=== PATIENT | male | born 1940 | race Caucasian/White ===

== ENCOUNTER 2023-11-28 13:45 | Emergency (ER) | payer OTHER ==
[2023-11-28 14:02] VITALS: BMI 16.7
[2023-11-28 15:52] LABS: BASO % 0.7 % (0-2.0); EOS % 2.8 % (0-4.5); HEMATOCRIT 35.5 % (35.4-49); HEMOGLOBIN 12.1 GM/dL (11.7-16.9); LYMPH % 19.3 % (8-40); MCHC 34.1 g/dl (32.0-35.9); MEAN CELL VOLUME 88.1 fl (80-96); MEAN PLT VOLUME 8.4 fl (7.5-11.1); MONO % 8.1 % (3.8-10.2); NEUT % 69.1 % (42.8-82.8); PLATELET COUNT 219 10^3/uL (134-434); RBC 4.02 M/mm3 (4.00-5.60); RDW 15.4 % (11.9-15.9); WHITE BLOOD COUNT 10.5 K/mm3 (4.0-10.0)
[2023-11-28 16:14] LABS: POTASSIUM 3.6 mmol/L (3.5-5.1)
[2023-11-28 16:17] LABS: ALBUMIN 3.1 g/dl (3.4-5.0); CALCIUM 8.9 mg/dL (8.5-10.1)
[2023-11-28 16:20] LABS: CREATININE 1.4 mg/dL (0.55-1.3)
[2023-11-28 16:22] LABS: BILIRUBIN,TOTAL 0.9 mg/dL (0.2-1); TOT PROT 6.6 g/dl (6.4-8.2)
[2023-11-28] MEDS: ACETAMINOPHEN 1000 MG/100 ML BAG IVPB ONE (16:30)
[2023-11-28] MEDS ORDERED: ACETAMINOPHEN INJECTION 100 ML IVPB ONE (16:35)
[2023-11-28] MEDS: SODIUM CHLORIDE 0.9% 500 ML INFUS.BAG IV ONE (18:43)
[2023-11-28 19:59] LABS: EPI CELLS 1 /uL (0-25.1); HYALINE CASTS 0 /uL (0-3.1); URINE APPEARANCE CLEAR; URINE BACTERIA 654 /uL (0-1359); URINE BILIRUBIN NEGATIVE (NEGATIVE); URINE COLOR YELLOW; URINE GLUCOSE (UA) NEGATIVE (NEGATIVE); URINE KETONE NEGATIVE (NEGATIVE); URINE LEUK ESTERASE 3+ (NEGATIVE); URINE NITRITE NEGATIVE (NEGATIVE); URINE PROTEIN NEGATIVE (NEGATIVE); URINE WBC 621 /uL (0-25.8)
[2023-11-28 20:29] LABS: URINE RBC 35.8 /uL (0-23.9)
[2023-11-28] MEDS ORDERED: SULFAMETHOXAZOLE/TRIMETHOPRIM 800MG/160MG D.S. TABLET ONE (21:39)
[2023-11-28] MEDS: SULFAMETHOXAZOLE/TRIMETHOPRIM 800MG/160MG D.S. TABLET PO ONE (21:50)
[2023-11-29 07:48] VITALS: BP 150/73; PULSE 71; RESP 18; TEMP 97.7
== END 2023-11-29 08:35 | disposition home or self-care (01) ==
LOC: JER 13:45
PROC: 3E033NZ Introduction of Analgesics, Hypnotics, Sedatives into Peripheral Vein, Percutaneous Approach (ICD-10-PCS; principal; 2023-11-28)
DX: R42 Dizziness and giddiness (principal); N39.0 Urinary tract infection, site not specified; W19.XXXA Unspecified fall, initial encounter; Z20.822 Contact with and (suspected) exposure to COVID-19
CPT/HCPCS: 0241U-QW; 36415; 70450-TC; 71045-TC-FY; 72125-TC; 72170-TC-FY; 80053; 81003; 83735; 85025; 87086; 87186; 93005; 93010; 99285-25; J0131

== ENCOUNTER 2024-02-27 14:56 | Inpatient (IN) | payer OTHER ==
[2024-02-27 16:24] LABS: HEMATOCRIT 21.7 % (35.4-49); HEMOGLOBIN 7.3 GM/dL (11.7-16.9); MCH 29.5 pg (25.7-33.7); MCHC 33.7 g/dl (32.0-35.9); MEAN CELL VOLUME 87.5 fl (80-96); MEAN PLT VOLUME 8.2 fl (7.5-11.1); PLATELET COUNT 477 10^3/uL (134-434); RBC 2.48 M/mm3 (4.00-5.60); RDW 13.8 % (11.9-15.9); WHITE BLOOD COUNT 20.2 K/mm3 (4.0-10.0)
[2024-02-27] MEDS ORDERED: MAG HYDROX/AL HYDROX/SIMETH 30 ML UNIT-DOSE CUP ONE (16:28)
[2024-02-27] MEDS ORDERED: ONDANSETRON 4 MG/2 ML VIAL ONE (16:28)
[2024-02-27] MEDS: SODIUM CHLORIDE 1,000 ML IV STA (16:34)
[2024-02-27] MEDS: ONDANSETRON 4 MG/2 ML VIAL IVPUSH ONE (16:34)
[2024-02-27] MEDS: MAG HYDROX/AL HYDROX/SIMETH 30 ML UNIT-DOSE CUP PO ONE (16:34)
[2024-02-27 16:55] LABS: ANISOCYTOSIS 0; HELMET CELLS 0; HOWELL-JOLLY BODIES 0; MACROCYTOSIS 0; OVALOCYTE 0; ROULEAU 0; SICKELED CELLS 0; TARGET CELLS 0; TEAR DROP CELLS 0; TOXIC GRANULATION 0
[2024-02-27] MEDS ORDERED: FAMOTIDINE 20 MG/50 ML IVPB 20 MG/50 ML MG IVPB ONE (16:56)
[2024-02-27] MEDS ORDERED: ACETAMINOPHEN INJECTION 100 ML IVPB ONE (16:56)
[2024-02-27] MEDS: FAMOTIDINE 20 MG/50 ML IVPB 20 MG/50 ML MG IVPB ONE (17:01)
[2024-02-27] MEDS: ACETAMINOPHEN 1000 MG/100 ML BAG IVPB ONE (17:01)
[2024-02-27 17:53] LABS: POTASSIUM 4.4 mmol/L (3.5-5.1)
[2024-02-27 17:55] LABS: CALCIUM 8.7 mg/dL (8.5-10.1)
[2024-02-27 17:56] LABS: ALBUMIN 2.6 g/dl (3.4-5.0); BLOOD UREA NITROGEN 50.4 mg/dL (7-18)
[2024-02-27 17:59] LABS: CREATININE 1.7 mg/dL (0.55-1.3)
[2024-02-27 18:00] LABS: BILIRUBIN,TOTAL 0.5 mg/dL (0.2-1); TOT PROT 5.8 g/dl (6.4-8.2)
[2024-02-27] MEDS ORDERED: PIPERACILLIN/TAZOB 3.375 GM 3.375 GM/50 ML BAG IVPB ONE (19:44)
[2024-02-27] MEDS: PIPERACILLIN/TAZOB 3.375 GM 3.375 GM in DEXTROSE 5%-WATER - 50 ML IVPB ONE (19:49)
[2024-02-27] MEDS ORDERED: VANCOMYCIN 1 GRAM (PRE-DOCKED) 1,000 MG/250 ML BAG IVPB ONE (20:03)
[2024-02-27 20:04] LABS: VENOUS BASE EXCESS -1.1 mmol/L (-2-2); VENOUS O2 SATURATION 34.3 % (70-80); VENOUS PCO2 43.4 mmHg (38-52); VENOUS PH 7.365 (7.310-7.410)
[2024-02-27] MEDS: VANCOMYCIN 1,000 MG in DEXTROSE 5%-WATER - 250 ML IVPB ONE (20:16)
[2024-02-27] MEDS: SODIUM CHLORIDE 0.9% 1000 ML INFUS.BAG IV STA (20:53)
[2024-02-27] MEDS ORDERED: PANTOPRAZOLE SODIUM 40 MG VIAL ONE (21:49)
[2024-02-27] MEDS: PANTOPRAZOLE SODIUM 40 MG VIAL IVPUSH ONE (21:51)
[2024-02-28 04:41] LABS: BASO % 0.1 % (0-2.0); HEMATOCRIT 14.4 % (35.4-49); LYMPH % 1.5 % (8-40); MCH 28.7 pg (25.7-33.7); MEAN CELL VOLUME 89.6 fl (80-96); MEAN PLT VOLUME 7.5 fl (7.5-11.1); MONO % 3.2 % (3.8-10.2); NEUT % 95.2 % (42.8-82.8); PLATELET COUNT 375 10^3/uL (134-434); RBC 1.61 M/mm3 (4.00-5.60); RDW 13.7 % (11.9-15.9)
[2024-02-28 04:48] LABS: INR 1.71 (0.83-1.09)
[2024-02-28 04:51] LABS: ACTIVATED PTT 29.4 SECONDS (25.2-36.5)
[2024-02-28 05:39] LABS: WHITE BLOOD COUNT 41.8 K/mm3 (4.0-10.0)
[2024-02-28 05:40] LABS: HEMOGLOBIN 4.6 GM/dL (11.7-16.9)
[2024-02-28 07:26] LABS: CHLORIDE 93 mmol/L (98-107); POTASSIUM 5.6 mmol/L (3.5-5.1); SODIUM 128 mmol/L (136-145)
[2024-02-28 07:28] LABS: CALCIUM 7.8 mg/dL (8.5-10.1)
[2024-02-28 07:29] LABS: ALBUMIN 2.2 g/dl (3.4-5.0); ANION GAP 24 mmol/L (4-13); BLOOD UREA NITROGEN 49.2 mg/dL (7-18); CO2 11 mmol/L (21-32); MAGNESIUM 1.8 mg/dL (1.8-2.4)
[2024-02-28 07:32] LABS: CREATININE 2.2 mg/dL (0.55-1.3); PHOSPHOROUS 5.1 mg/dL (2.5-4.9); SGOT/AST 21 U/L (15-37); SGPT/ALT 27 U/L (13-61)
[2024-02-28 07:34] LABS: TOT PROT 4.9 g/dl (6.4-8.2)
[2024-02-28 07:35] LABS: ALK PHOS 59 U/L (45-117)
[2024-02-28 07:37] LABS: GLUCOSE,RANDOM 435 mg/dL (74-106)
[2024-02-28] MEDS ORDERED: PIPERACILLIN/TAZOB 2.25 GM 2.25 GM in DEXTROSE 5%-WATER - 50 ML IVPB SCH (09:00)
[2024-02-28 09:24] LABS: ARTERIAL BLD GAS O2 SATURATION 98.9 % (95-98); ARTERIAL BLOOD GAS BASE EXCESS -16.9 mmol/L (-2-2); ARTERIAL BLOOD GAS PO2 159.1 mmHg (80-100); ARTERIAL BLOOD GAS pH 7.285 (7.350-7.450)
[2024-02-28 09:50] LABS: ANISOCYTOSIS 0; HELMET CELLS 0; HOWELL-JOLLY BODIES 0; MACROCYTOSIS 0; OVALOCYTE 0; ROULEAU 0; SICKELED CELLS 0; TARGET CELLS 0; TEAR DROP CELLS 0; TOXIC GRANULATION 0
[2024-02-28] MEDS ORDERED: CALCIUM CHLORIDE 10% 1 GM/10 ML *VIAL IVPUSH ONE (09:55)
[2024-02-28] MEDS: VANCOMYCIN/WATER FOR INJ (PEG) 750 MG/150 ML BAG IVPB SCH (09:58)
[2024-02-28] MEDS: HUM PROTHROMBIN CPLX(PCC)4FACT 1,000 UNIT/40 ML VIAL IVPB ONE (10:04)
[2024-02-28] MEDS ORDERED: DEXTROSE 50%-WATER 25 GM/50 ML DISP.SYRIN ONE (10:27)
[2024-02-28] MEDS: DEXTROSE 50%-WATER - 25 GM/50 ML VIAL IVPUSH ONE (10:35)
[2024-02-28] MEDS: INSULIN REGULAR HUMAN 100 UNITS/ML *VIAL IVPUSH ONE (10:36)
[2024-02-28] MEDS: CALCIUM CHLORIDE 1 GM/10 ML *DISP.SYRIN IVPUSH ONE (10:36)
[2024-02-28] MEDS: PIPERACILLIN/TAZOB 2.25 GM 2.25 GM in DEXTROSE 5%-WATER - 50 ML IVPB SCH (10:56)
[2024-02-28] MEDS: PHYTONADIONE 10 MG/1 ML AMP IVPB ONE (10:56)
[2024-02-28] MEDS: MUPIROCIN 2% TOPICAL OINTMENT FOR DECOLONIZATION NS SCH (11:28)
[2024-02-28 11:30] LABS: PH,URINE 5.5 (5.0-8.0); URINE APPEARANCE CLEAR; URINE BILIRUBIN NEGATIVE (NEGATIVE); URINE COLOR YELLOW; URINE GLUCOSE (UA) 3+ (NEGATIVE); URINE KETONE 1+ (NEGATIVE); URINE LEUK ESTERASE NEGATIVE (NEGATIVE); URINE NITRITE NEGATIVE (NEGATIVE); URINE PROTEIN NEGATIVE (NEGATIVE); URINE UROBILINOGEN 0.2 mg/dL (0.2-1.0)
[2024-02-28] MEDS: INSULIN REGULAR HUMAN 100 UNITS/ML *VIAL* (FOR IVP) IVPUSH ONE (12:55)
[2024-02-28 13:49] LABS: HEMOGLOBIN 9.8 GM/dL (11.7-16.9); MCH 31.1 pg (25.7-33.7); MCHC 33.6 g/dl (32.0-35.9); MEAN CELL VOLUME 92.4 fl (80-96); MEAN PLT VOLUME 8.5 fl (7.5-11.1); PLATELET COUNT 231 10^3/uL (134-434); RBC 3.14 M/mm3 (4.00-5.60); RDW 13.5 % (11.9-15.9)
[2024-02-28 13:57] LABS: INR 1.43 (0.83-1.09); PROTHROMBIN TIME (PATIENT) 16.3 SEC (9.7-13.0)
[2024-02-28] MEDS: INSULIN REGULAR 100 UNITS in SODIUM CHLORIDE 99 ML IVPB SCH (13:57)
[2024-02-28 14:04] LABS: CHLORIDE 96 mmol/L (98-107); SODIUM 127 mmol/L (136-145); WHITE BLOOD COUNT 32.5 K/mm3 (4.0-10.0)
[2024-02-28 14:06] LABS: ANION GAP 14 mmol/L (4-13); CALCIUM 8.5 mg/dL (8.5-10.1); CO2 17 mmol/L (21-32)
[2024-02-28 14:07] LABS: ALBUMIN 1.9 g/dl (3.4-5.0); MAGNESIUM 1.9 mg/dL (1.8-2.4)
[2024-02-28 14:09] LABS: PHOSPHOROUS 4.8 mg/dL (2.5-4.9)
[2024-02-28 14:10] LABS: CREATININE 2.1 mg/dL (0.55-1.3); SGOT/AST 52 U/L (15-37); SGPT/ALT 43 U/L (13-61)
[2024-02-28 14:11] LABS: BILIRUBIN,TOTAL 1.3 mg/dL (0.2-1); TOT PROT 4.1 g/dl (6.4-8.2)
[2024-02-28 14:12] LABS: ALK PHOS 52 U/L (45-117); LACTIC ACID 10.2 mmol/L (0.4-2.0)
[2024-02-28 14:13] LABS: LDH 220 U/L (87-246)
[2024-02-28 14:15] LABS: GLUCOSE,RANDOM 534 mg/dL (74-106)
[2024-02-28 14:44] LABS: ANISOCYTOSIS 0; HELMET CELLS 0; HOWELL-JOLLY BODIES 0; MACROCYTOSIS 0; OVALOCYTE 0; ROULEAU 0; SICKELED CELLS 0; TARGET CELLS 0; TEAR DROP CELLS 0; TOXIC GRANULATION 0
[2024-02-28] MEDS: SODIUM ZIRCONIUM CYCLOSILICATE (LOKELMA) 5 GM PACKET PO ONE (15:19)
[2024-02-28] MEDS: DEXTROSE 5%-0.45% SALINE 1,000 ML IV SCH (15:19)
[2024-02-28] MEDS ORDERED: SODIUM CHLORIDE 0.45% 1,000 ML with SODIUM BICARBONATE 8.4% - 100 MEQ IV SCH ×2 (16:15→17:03)
[2024-02-28 16:42] LABS: BASO % 0.1 % (0-2.0); HEMATOCRIT 34.8 % (35.4-49); HEMOGLOBIN 11.9 GM/dL (11.7-16.9); LYMPH % 2.8 % (8-40); MCH 31.1 pg (25.7-33.7); MCHC 34.1 g/dl (32.0-35.9); MEAN CELL VOLUME 91.3 fl (80-96); MEAN PLT VOLUME 8.3 fl (7.5-11.1); MONO % 1.4 % (3.8-10.2); NEUT % 95.7 % (42.8-82.8); PLATELET COUNT 211 10^3/uL (134-434); RBC 3.81 M/mm3 (4.00-5.60); RDW 13.8 % (11.9-15.9); WHITE BLOOD COUNT 29.9 K/mm3 (4.0-10.0)
[2024-02-28 16:47] LABS: INR 1.44 (0.83-1.09); PROTHROMBIN TIME (PATIENT) 16.4 SEC (9.7-13.0)
[2024-02-28] MEDS: LACTATED RINGERS SOLUTION 1000 ML INFUS.BAG IV ONE (16:47)
[2024-02-28 17:08] LABS: CHLORIDE 97 mmol/L (98-107); POTASSIUM 4.9 mmol/L (3.5-5.1); SODIUM 129 mmol/L (136-145)
[2024-02-28 17:10] LABS: CALCIUM 8.4 mg/dL (8.5-10.1)
[2024-02-28 17:11] LABS: ALBUMIN 1.9 g/dl (3.4-5.0); ANION GAP 16 mmol/L (4-13); BLOOD UREA NITROGEN 52.8 mg/dL (7-18); CO2 16 mmol/L (21-32); MAGNESIUM 1.8 mg/dL (1.8-2.4)
[2024-02-28 17:13] LABS: PHOSPHOROUS 2.5 mg/dL (2.5-4.9); SGOT/AST 63 U/L (15-37); SGPT/ALT 52 U/L (13-61)
[2024-02-28 17:14] LABS: CREATININE 2.5 mg/dL (0.55-1.3)
[2024-02-28 17:15] LABS: TOT PROT 4.2 g/dl (6.4-8.2)
[2024-02-28 17:16] LABS: ALK PHOS 52 U/L (45-117)
[2024-02-28 17:17] LABS: GLUCOSE,RANDOM 473 mg/dL (74-106); LACTIC ACID 9.8 mmol/L (0.4-2.0)
[2024-02-28 17:38] LABS: ANISOCYTOSIS 1+; MACROCYTOSIS 0; OVALOCYTE 1+
[2024-02-28] MEDS ORDERED: INSULIN REGULAR HUMAN 100 UNITS/ML *VIAL ONE (18:09)
[2024-02-28] MEDS ORDERED: SODIUM CHLORIDE 0.45% 1,000 ML with SODIUM BICARBONATE 8.4% - 75 MEQ IV SCH (18:15)
[2024-02-28] MEDS: SODIUM CHLORIDE 0.45% 1,000 ML with SODIUM BICARBONATE 8.4% - 75 MEQ IV SCH (18:28)
[2024-02-28] MEDS ORDERED: VANCOMYCIN 750 MG in DEXTROSE 5%-WATER - 150 ML IVPB SCH (20:00)
[2024-02-28 21:20] LABS: HEMATOCRIT 30.4 % (35.4-49); HEMOGLOBIN 10.7 GM/dL (11.7-16.9); MCH 31.2 pg (25.7-33.7); MCHC 35.3 g/dl (32.0-35.9); MEAN CELL VOLUME 88.5 fl (80-96); MEAN PLT VOLUME 8.1 fl (7.5-11.1); PLATELET COUNT 206 10^3/uL (134-434); RBC 3.43 M/mm3 (4.00-5.60); RDW 13.9 % (11.9-15.9)
[2024-02-28 21:27] LABS: INR 1.48 (0.83-1.09); PROTHROMBIN TIME (PATIENT) 16.8 SEC (9.7-13.0)
[2024-02-28] MEDS: CHLORHEXIDINE GLUCONATE 4% CLEANSER FOR DECOLONIZATION TP SCH (21:36)
[2024-02-28 21:39] LABS: POTASSIUM 4.6 mmol/L (3.5-5.1)
[2024-02-28 21:41] LABS: BLOOD UREA NITROGEN 56.5 mg/dL (7-18); CALCIUM 8.4 mg/dL (8.5-10.1)
[2024-02-28 21:42] LABS: ALBUMIN 1.9 g/dl (3.4-5.0)
[2024-02-28 21:45] LABS: CREATININE 2.4 mg/dL (0.55-1.3)
[2024-02-28 21:46] LABS: BILIRUBIN,TOTAL 1.1 mg/dL (0.2-1)
[2024-02-28 21:52] LABS: LACTIC ACID 5.9 mmol/L (0.4-2.0)
[2024-02-28] MEDS ORDERED: SODIUM ZIRCONIUM CYCLOSILICATE (LOKELMA) 5 GM PACKET PO SCH (22:00)
[2024-02-28 22:22] LABS: WHITE BLOOD COUNT 36.8 K/mm3 (4.0-10.0)
[2024-02-29] MEDS: ONDANSETRON 4 MG/2 ML VIAL IVPUSH ONE ×2 (05:45→06:33)
[2024-02-29] MEDS: DEXTROSE 5%-0.45% SALINE 1,000 ML IV SCH (06:00)
[2024-02-29] MEDS: INSULIN REGULAR 100 UNITS in SODIUM CHLORIDE 99 ML IVPB SCH (06:25)
[2024-02-29 06:33] LABS: HEMATOCRIT 28.2 % (35.4-49); HEMOGLOBIN 9.8 GM/dL (11.7-16.9); MCH 30.8 pg (25.7-33.7); MCHC 34.8 g/dl (32.0-35.9); MEAN CELL VOLUME 88.6 fl (80-96); MEAN PLT VOLUME 9.1 fl (7.5-11.1); PLATELET COUNT 214 10^3/uL (134-434); RBC 3.18 M/mm3 (4.00-5.60); RDW 14.2 % (11.9-15.9)
[2024-02-29 06:37] LABS: POTASSIUM 5.1 mmol/L (3.5-5.1)
[2024-02-29 06:40] LABS: BLOOD UREA NITROGEN 61.8 mg/dL (7-18); MAGNESIUM 1.7 mg/dL (1.8-2.4)
[2024-02-29 06:43] LABS: CREATININE 2.6 mg/dL (0.55-1.3); PHOSPHOROUS 4.1 mg/dL (2.5-4.9)
[2024-02-29 06:44] LABS: BILIRUBIN,TOTAL 0.8 mg/dL (0.2-1); TOT PROT 4.4 g/dl (6.4-8.2)
[2024-02-29 07:17] LABS: BASO % 0.2 % (0-2.0); HEMATOCRIT 27.3 % (35.4-49); HEMOGLOBIN 9.6 GM/dL (11.7-16.9); LYMPH % 2.3 % (8-40); MCHC 35.3 g/dl (32.0-35.9); MEAN CELL VOLUME 87.8 fl (80-96); MEAN PLT VOLUME 9.2 fl (7.5-11.1); MONO % 4.6 % (3.8-10.2); NEUT % 92.9 % (42.8-82.8); PLATELET COUNT 208 10^3/uL (134-434); RBC 3.11 M/mm3 (4.00-5.60); RDW 14.4 % (11.9-15.9); WHITE BLOOD COUNT 46.7 K/mm3 (4.0-10.0)
[2024-02-29 08:08] LABS: WHITE BLOOD COUNT 47.1 K/mm3 (4.0-10.0)
[2024-02-29] MEDS ORDERED: CALCIUM CHLORIDE 10% 1 GM/10 ML *VIAL IVPUSH ONE ×2 (08:56→10:15)
[2024-02-29] MEDS ORDERED: CALCIUM GLUCONATE IN NACL 1 GM/50 ML BAG IVPB ONE (09:00)
[2024-02-29] MEDS: PIPERACILLIN/TAZOB 2.25 GM 2.25 GM in DEXTROSE 5%-WATER - 50 ML IVPB SCH (09:45)
[2024-02-29] MEDS: MAGNESIUM 2GM/50ML STERILE WATER IVPB IVPB ONE (09:46)
[2024-02-29] MEDS: VANCOMYCIN/WATER FOR INJ (PEG) 1,000 MG/200 ML BAG IVPB ONE (09:46)
[2024-02-29 09:47] LABS: ANISOCYTOSIS 0; MACROCYTOSIS 0
[2024-02-29] MEDS: INSULIN ASPART SLIDING SCALE (NOVOLOG) 1 VIAL SQ SCH (10:04)
[2024-02-29] MEDS: PANTOPRAZOLE SODIUM 40 MG VIAL IVPUSH SCH ×2 (10:05→21:12)
[2024-02-29] MEDS: CALCIUM CHLORIDE 1 GM/10 ML *DISP.SYRIN IVPUSH ONE (10:19)
[2024-02-29] MEDS ORDERED: INSULIN (NOVOLOG) ASPART 100 UNITS/ML 10ML VIAL ONE (11:26)
[2024-02-29] MEDS: FUROSEMIDE 40 MG/4 ML INJECTABLE VIAL IVPUSH ONE (12:30)
[2024-02-29 15:05] LABS: HEMOGLOBIN 8.5 GM/dL (11.7-16.9); MCH 30.7 pg (25.7-33.7); MCHC 34.1 g/dl (32.0-35.9); MEAN CELL VOLUME 89.8 fl (80-96); MEAN PLT VOLUME 9.3 fl (7.5-11.1); PLATELET COUNT 207 10^3/uL (134-434); RBC 2.78 M/mm3 (4.00-5.60); RDW 14.5 % (11.9-15.9)
[2024-02-29 15:08] LABS: WHITE BLOOD COUNT 45.9 K/mm3 (4.0-10.0)
[2024-02-29 15:14] LABS: POTASSIUM 5.6 mmol/L (3.5-5.1)
[2024-02-29 15:18] LABS: MAGNESIUM 2.7 mg/dL (1.8-2.4)
[2024-02-29 15:19] LABS: BLOOD UREA NITROGEN 69.7 mg/dL (7-18)
[2024-02-29 15:21] LABS: CREATININE 2.9 mg/dL (0.55-1.3)
[2024-02-29 15:23] LABS: BILIRUBIN,TOTAL 0.7 mg/dL (0.2-1); TOT PROT 4.3 g/dl (6.4-8.2)
[2024-02-29 15:33] LABS: ANISOCYTOSIS 1+; MACROCYTOSIS 0
[2024-02-29 19:25] LABS: HEMATOCRIT 23.8 % (35.4-49); HEMOGLOBIN 8.2 GM/dL (11.7-16.9); MCHC 34.3 g/dl (32.0-35.9); MEAN CELL VOLUME 90.1 fl (80-96); MEAN PLT VOLUME 8.9 fl (7.5-11.1); PLATELET COUNT 207 10^3/uL (134-434); RBC 2.65 M/mm3 (4.00-5.60); RDW 14.6 % (11.9-15.9)
[2024-02-29 20:05] LABS: ANISOCYTOSIS 1+; OVALOCYTE 1+
[2024-02-29 20:06] LABS: PLATELET ESTIMATE ADEQUATE
[2024-02-29 23:50] LABS: HEMATOCRIT 22.3 % (35.4-49); HEMOGLOBIN 7.6 GM/dL (11.7-16.9); MCH 30.9 pg (25.7-33.7); MCHC 34.3 g/dl (32.0-35.9); MEAN CELL VOLUME 90.3 fl (80-96); MEAN PLT VOLUME 8.8 fl (7.5-11.1); PLATELET COUNT 188 10^3/uL (134-434); RBC 2.47 M/mm3 (4.00-5.60); RDW 14.7 % (11.9-15.9)
[2024-03-01 00:03] LABS: WHITE BLOOD COUNT 41.3 K/mm3 (4.0-10.0)
[2024-03-01 00:24] LABS: ANISOCYTOSIS 1+; MACROCYTOSIS 1+; OVALOCYTE 1+
[2024-03-01 00:26] LABS: PLATELET ESTIMATE ADEQUATE
[2024-03-01 06:51] LABS: HEMATOCRIT 20.7 % (35.4-49); HEMOGLOBIN 7.1 GM/dL (11.7-16.9); MCH 30.9 pg (25.7-33.7); MCHC 34.2 g/dl (32.0-35.9); MEAN CELL VOLUME 90.4 fl (80-96); MEAN PLT VOLUME 8.9 fl (7.5-11.1); PLATELET COUNT 172 10^3/uL (134-434); RBC 2.29 M/mm3 (4.00-5.60); RDW 14.8 % (11.9-15.9); WHITE BLOOD COUNT 25.7 K/mm3 (4.0-10.0)
[2024-03-01 07:11] LABS: POTASSIUM 3.7 mmol/L (3.5-5.1)
[2024-03-01 07:13] LABS: CALCIUM 7.6 mg/dL (8.5-10.1)
[2024-03-01 07:14] LABS: ALBUMIN 1.7 g/dl (3.4-5.0); BLOOD UREA NITROGEN 83.8 mg/dL (7-18)
[2024-03-01 07:17] LABS: CREATININE 3.1 mg/dL (0.55-1.3); PHOSPHOROUS 4.1 mg/dL (2.5-4.9)
[2024-03-01 07:18] LABS: MAGNESIUM 2.7 mg/dL (1.8-2.4)
[2024-03-01 07:19] LABS: BILIRUBIN,TOTAL 0.5 mg/dL (0.2-1); TOT PROT 3.9 g/dl (6.4-8.2)
[2024-03-01 09:31] LABS: ANISOCYTOSIS 0; HELMET CELLS 0; HOWELL-JOLLY BODIES 0; MACROCYTOSIS 0; OVALOCYTE 0; ROULEAU 0; SICKELED CELLS 0; TARGET CELLS 0; TEAR DROP CELLS 0; TOXIC GRANULATION 0
[2024-03-01 12:40] LABS: HEMATOCRIT 28.3 % (35.4-49); HEMOGLOBIN 9.6 GM/dL (11.7-16.9); MCH 30.2 pg (25.7-33.7); MEAN CELL VOLUME 88.7 fl (80-96); MEAN PLT VOLUME 8.5 fl (7.5-11.1); PLATELET COUNT 168 10^3/uL (134-434); RBC 3.19 M/mm3 (4.00-5.60); RDW 14.6 % (11.9-15.9)
[2024-03-01 12:43] LABS: WHITE BLOOD COUNT 38.5 K/mm3 (4.0-10.0)
[2024-03-01 13:07] LABS: ANISOCYTOSIS 0; HELMET CELLS 0; HOWELL-JOLLY BODIES 0; MACROCYTOSIS 0; OVALOCYTE 0; ROULEAU 0; SICKELED CELLS 0; TARGET CELLS 0; TEAR DROP CELLS 0; TOXIC GRANULATION 0
[2024-03-01] MEDS: FUROSEMIDE 40 MG/4 ML INJECTABLE VIAL IVPUSH ONE (17:57)
[2024-03-01] MEDS: ACETAMINOPHEN 1000 MG/100 ML BAG IVPB ONE (17:57)
[2024-03-01] MEDS ORDERED: LIDOCAINE HCL 2% 100 MG/5 ML DISP.SYRIN ONE (18:07)
[2024-03-01] MEDS: LIDOCAINE HCL 2% 100 MG/5 ML DISP.SYRIN NR ONE (18:27)
[2024-03-01 19:45] LABS: HEMATOCRIT 29.1 % (35.4-49); HEMOGLOBIN 10.1 GM/dL (11.7-16.9); MCH 30.6 pg (25.7-33.7); MCHC 34.8 g/dl (32.0-35.9); MEAN CELL VOLUME 87.8 fl (80-96); MEAN PLT VOLUME 8.3 fl (7.5-11.1); PLATELET COUNT 169 10^3/uL (134-434); RBC 3.31 M/mm3 (4.00-5.60); RDW 15.4 % (11.9-15.9); WHITE BLOOD COUNT 19.2 K/mm3 (4.0-10.0)
[2024-03-01 20:42] LABS: ANISOCYTOSIS 1+; MACROCYTOSIS 1+
[2024-03-01] MEDS: NOREPINEPHRINE 0.9 % NACL 8 MG/250 ML BAG IVPB SCH (22:34)
[2024-03-01] MEDS ORDERED: DEXTROSE 50%-WATER 25 GM/50 ML DISP.SYRIN ONE (22:55)
[2024-03-01 23:05] LABS: HEMATOCRIT 29.3 % (35.4-49); HEMOGLOBIN 10.2 GM/dL (11.7-16.9); MCHC 34.9 g/dl (32.0-35.9); MEAN CELL VOLUME 88.8 fl (80-96); MEAN PLT VOLUME 8.5 fl (7.5-11.1); PLATELET COUNT 167 10^3/uL (134-434); RDW 15.9 % (11.9-15.9); WHITE BLOOD COUNT 25.6 K/mm3 (4.0-10.0)
[2024-03-01 23:10] LABS: INR 1.19 (0.83-1.09); PROTHROMBIN TIME (PATIENT) 13.6 SEC (9.7-13.0)
[2024-03-01] MEDS: DEXTROSE 50%-WATER 25 GM/50 ML DISP.SYRIN IVPUSH ONE (23:20)
[2024-03-02 06:58] LABS: HEMATOCRIT 28.4 % (35.4-49); HEMOGLOBIN 9.6 GM/dL (11.7-16.9); MCH 30.1 pg (25.7-33.7); MCHC 33.7 g/dl (32.0-35.9); MEAN CELL VOLUME 89.2 fl (80-96); PLATELET COUNT 162 10^3/uL (134-434); RBC 3.18 M/mm3 (4.00-5.60)
[2024-03-02 07:26] LABS: WHITE BLOOD COUNT 35.5 K/mm3 (4.0-10.0)
[2024-03-02 07:27] LABS: POTASSIUM 3.5 mmol/L (3.5-5.1)
[2024-03-02 07:32] LABS: BLOOD UREA NITROGEN 83.2 mg/dL (7-18); CALCIUM 7.2 mg/dL (8.5-10.1)
[2024-03-02 07:33] LABS: ALBUMIN 1.6 g/dl (3.4-5.0); MAGNESIUM 2.3 mg/dL (1.8-2.4)
[2024-03-02 07:35] LABS: CREATININE 2.9 mg/dL (0.55-1.3)
[2024-03-02 07:37] LABS: BILIRUBIN,TOTAL 1.1 mg/dL (0.2-1)
[2024-03-02] MEDS: MAGNESIUM SULFATE IN WATER 2 GM/50 ML IVPB IVPB ONE (10:08)
[2024-03-02 10:39] LABS: ANISOCYTOSIS 0; MACROCYTOSIS 0
[2024-03-02] MEDS ORDERED: RAPID SEQUENCE INTUBATION KIT NR ONE (13:47)
[2024-03-02] MEDS ORDERED: MIDAZOLAM IN 0.9 % SOD.CHLORID 1 MG/1 ML PLAST..BAG ONE (14:12)
[2024-03-02] MEDS: MIDAZOLAM IN 0.9 % SOD.CHLORID 100 MG/100 ML PLAST..BAG IVPB SCH (14:23)
[2024-03-02] MEDS: FENTANYL NS IVPB 500 MCG/100 ML BAG IVPB SCH (16:36)
[2024-03-02 17:03] LABS: HEMATOCRIT 30.7 % (35.4-49); HEMOGLOBIN 10.6 GM/dL (11.7-16.9); MCHC 34.5 g/dl (32.0-35.9); MEAN CELL VOLUME 89.7 fl (80-96); PLATELET COUNT 176 10^3/uL (134-434); RBC 3.42 M/mm3 (4.00-5.60); RDW 16.8 % (11.9-15.9)
[2024-03-02 17:55] LABS: ANISOCYTOSIS 1+; MACROCYTOSIS 1+
[2024-03-02 18:16] LABS: PLATELET ESTIMATE ADEQUATE
[2024-03-02 21:36] LABS: HEMATOCRIT 31.1 % (35.4-49); HEMOGLOBIN 10.6 GM/dL (11.7-16.9); MCH 30.8 pg (25.7-33.7); MCHC 34.2 g/dl (32.0-35.9); MEAN CELL VOLUME 90.1 fl (80-96); MEAN PLT VOLUME 9.1 fl (7.5-11.1); PLATELET COUNT 174 10^3/uL (134-434); RBC 3.45 M/mm3 (4.00-5.60); RDW 16.9 % (11.9-15.9)
[2024-03-02 21:41] LABS: WHITE BLOOD COUNT 30.3 K/mm3 (4.0-10.0)
[2024-03-02] MEDS ORDERED: SODIUM CHLORIDE 1,000 ML IV STA (21:41)
[2024-03-02] MEDS: LACTATED RINGERS SOLUTION 1000 ML INFUS.BAG IV ONE (22:00)
[2024-03-02 22:24] LABS: ANISOCYTOSIS 1+; MACROCYTOSIS 1+; OVALOCYTE 1+
[2024-03-02 22:29] LABS: PLATELET ESTIMATE ADEQUATE
[2024-03-02] MEDS: VANCOMYCIN/WATER FOR INJ (PEG) 750 MG/150 ML BAG IVPB ONE (23:13)
[2024-03-03 06:40] LABS: HEMATOCRIT 25.5 % (35.4-49); HEMOGLOBIN 8.8 GM/dL (11.7-16.9); MCH 31.3 pg (25.7-33.7); MCHC 34.4 g/dl (32.0-35.9); MEAN PLT VOLUME 9.2 fl (7.5-11.1); PLATELET COUNT 167 10^3/uL (134-434); RDW 16.6 % (11.9-15.9)
[2024-03-03 06:56] LABS: POTASSIUM 3.7 mmol/L (3.5-5.1)
[2024-03-03 06:59] LABS: CALCIUM 7.3 mg/dL (8.5-10.1)
[2024-03-03 07:00] LABS: ALBUMIN 1.4 g/dl (3.4-5.0); BLOOD UREA NITROGEN 95.5 mg/dL (7-18); MAGNESIUM 2.5 mg/dL (1.8-2.4)
[2024-03-03 07:02] LABS: CREATININE 3.4 mg/dL (0.55-1.3); PHOSPHOROUS 6.8 mg/dL (2.5-4.9)
[2024-03-03 07:04] LABS: BILIRUBIN,TOTAL 0.7 mg/dL (0.2-1); TOT PROT 3.9 g/dl (6.4-8.2)
[2024-03-03 07:05] LABS: WHITE BLOOD COUNT 30.1 K/mm3 (4.0-10.0)
[2024-03-03] MEDS ORDERED: INSULIN (NOVOLOG) ASPART 100 UNITS/ML 10ML VIAL ONE ×2 (09:01→20:38)
[2024-03-03] MEDS: PANTOPRAZOLE SODIUM 80 MG in SODIUM CHLORIDE 100 ML IVPB SCH (10:56)
[2024-03-03] MEDS: LACTATED RINGERS SOLUTION 1,000 ML/1,000 ML INFUS.BAG IV SCH (11:45)
[2024-03-03] MEDS ORDERED: VASopressin 20 UNITS/ML VIAL IV ONE (12:08)
[2024-03-03] MEDS: VASopressin 40 UNITS/100 ML BAG IV SCH (12:15)
[2024-03-03] MEDS: methylPREDNISolone NA SUCC 40 MG/1 ML VIAL IVPUSH SCH (12:16)
[2024-03-03 13:44] LABS: ARTERIAL BLD GAS O2 SATURATION 95.5 % (95-98); ARTERIAL BLOOD GAS BASE EXCESS -4.1 mmol/L (-2-2); ARTERIAL BLOOD GAS PO2 82.6 mmHg (80-100); ARTERIAL BLOOD GAS pH 7.333 (7.350-7.450)
[2024-03-03 13:51] LABS: ALLENS TEST POSITIVE
[2024-03-03] MEDS: MEROPENEM 500 MG in DEXTROSE 5%-WATER 100 ML IVPB SCH (17:19)
[2024-03-03 17:30] LABS: HEMATOCRIT 25.5 % (35.4-49); HEMOGLOBIN 8.5 GM/dL (11.7-16.9); MCH 30.4 pg (25.7-33.7); MCHC 33.5 g/dl (32.0-35.9); MEAN PLT VOLUME 9.1 fl (7.5-11.1); PLATELET COUNT 172 10^3/uL (134-434); RDW 17.3 % (11.9-15.9)
[2024-03-03] MEDS: LACTATED RINGERS SOLUTION 1,000 ML/1,000 ML INFUS.BAG IV STA (19:45)
[2024-03-04] MEDS ORDERED: INSULIN (NOVOLOG) ASPART 100 UNITS/ML 10ML VIAL ONE ×3 (03:31→18:34)
[2024-03-04 06:04] LABS: HEMATOCRIT 23.1 % (35.4-49); HEMOGLOBIN 7.9 GM/dL (11.7-16.9); MCH 31.2 pg (25.7-33.7); MCHC 34.1 g/dl (32.0-35.9); MEAN CELL VOLUME 91.4 fl (80-96); MEAN PLT VOLUME 8.7 fl (7.5-11.1); PLATELET COUNT 171 10^3/uL (134-434); RBC 2.52 M/mm3 (4.00-5.60); RDW 17.6 % (11.9-15.9)
[2024-03-04 06:14] LABS: WHITE BLOOD COUNT 30.4 K/mm3 (4.0-10.0)
[2024-03-04 06:18] LABS: CHLORIDE 110 mmol/L (98-107); POTASSIUM 3.8 mmol/L (3.5-5.1); SODIUM 143 mmol/L (136-145)
[2024-03-04 06:20] LABS: CALCIUM 7.3 mg/dL (8.5-10.1)
[2024-03-04 06:22] LABS: ALBUMIN 1.4 g/dl (3.4-5.0); ANION GAP 9 mmol/L (4-13); CO2 23 mmol/L (21-32); GLUCOSE,RANDOM 221 mg/dL (74-106); MAGNESIUM 2.7 mg/dL (1.8-2.4)
[2024-03-04 06:25] LABS: CREATININE 3.6 mg/dL (0.55-1.3); PHOSPHOROUS 6.2 mg/dL (2.5-4.9); SGOT/AST 98 U/L (15-37); SGPT/ALT 97 U/L (13-61)
[2024-03-04 06:26] LABS: BILIRUBIN,TOTAL 0.6 mg/dL (0.2-1); TOT PROT 4.2 g/dl (6.4-8.2)
[2024-03-04 06:28] LABS: ALK PHOS 80 U/L (45-117)
[2024-03-04 06:42] LABS: BLOOD UREA NITROGEN 104.7 mg/dL (7-18)
[2024-03-04] MEDS: LACTATED RINGERS SOLUTION 1,000 ML/1,000 ML INFUS.BAG IV SCH ×2 (11:35→12:05)
[2024-03-04] MEDS: AMINO ACIDS 4.25%/D5W 1,000 ML IV SCH (11:51)
[2024-03-04] MEDS: DEXTROSE 5%-NORMAL SALINE 1,000 ML IV SCH (14:45)
[2024-03-04 17:18] LABS: HEMATOCRIT 22.4 % (35.4-49); HEMOGLOBIN 7.4 GM/dL (11.7-16.9); MCHC 32.9 g/dl (32.0-35.9); MEAN CELL VOLUME 91.2 fl (80-96); MEAN PLT VOLUME 8.7 fl (7.5-11.1); PLATELET COUNT 152 10^3/uL (134-434); RBC 2.46 M/mm3 (4.00-5.60); RDW 17.8 % (11.9-15.9)
[2024-03-04 17:34] LABS: WHITE BLOOD COUNT 30.6 K/mm3 (4.0-10.0)
[2024-03-04 18:36] LABS: ANISOCYTOSIS 0; CORRECTED WBC 27.08 K/mm3; MACROCYTOSIS 0
[2024-03-04 20:58] LABS: HEMATOCRIT 21.5 % (35.4-49); HEMOGLOBIN 7.2 GM/dL (11.7-16.9); MCH 30.6 pg (25.7-33.7); MCHC 33.4 g/dl (32.0-35.9); MEAN CELL VOLUME 91.7 fl (80-96); PLATELET COUNT 138 10^3/uL (134-434); RBC 2.35 M/mm3 (4.00-5.60); RDW 18.2 % (11.9-15.9)
[2024-03-04 21:26] LABS: WHITE BLOOD COUNT 31.9 K/mm3 (4.0-10.0)
[2024-03-04 22:11] LABS: ANISOCYTOSIS 1+; MACROCYTOSIS 0
[2024-03-05] MEDS ORDERED: INSULIN (NOVOLOG) ASPART 100 UNITS/ML 10ML VIAL ONE ×2 (05:28→09:42)
[2024-03-05 06:40] LABS: INR 1.02 (0.83-1.09); PROTHROMBIN TIME (PATIENT) 11.5 SEC (9.7-13.0)
[2024-03-05 06:41] LABS: ACTIVATED PTT 31.9 SECONDS (25.2-36.5)
[2024-03-05 06:50] LABS: HEMATOCRIT 26.6 % (35.4-49); HEMOGLOBIN 8.7 GM/dL (11.7-16.9); MCH 29.4 pg (25.7-33.7); MCHC 32.7 g/dl (32.0-35.9); MEAN CELL VOLUME 89.9 fl (80-96); MEAN PLT VOLUME 9.2 fl (7.5-11.1); PLATELET COUNT 128 10^3/uL (134-434); RBC 2.96 M/mm3 (4.00-5.60)
[2024-03-05 06:52] LABS: CHLORIDE 106 mmol/L (98-107); POTASSIUM 3.8 mmol/L (3.5-5.1); SODIUM 136 mmol/L (136-145)
[2024-03-05 06:57] LABS: ALBUMIN 1.4 g/dl (3.4-5.0); ANION GAP 8 mmol/L (4-13); CALCIUM 7.7 mg/dL (8.5-10.1); CO2 22 mmol/L (21-32); GLUCOSE,RANDOM 369 mg/dL (74-106); MAGNESIUM 2.7 mg/dL (1.8-2.4)
[2024-03-05 07:00] LABS: BILIRUBIN,TOTAL 0.7 mg/dL (0.2-1); CREATININE 3.3 mg/dL (0.55-1.3); PHOSPHOROUS 5.5 mg/dL (2.5-4.9); SGOT/AST 138 U/L (15-37); SGPT/ALT 138 U/L (13-61); TOT PROT 4.3 g/dl (6.4-8.2)
[2024-03-05 07:02] LABS: ALK PHOS 87 U/L (45-117)
[2024-03-05 07:11] LABS: BLOOD UREA NITROGEN 116.5 mg/dL (7-18)
[2024-03-05 07:34] LABS: WHITE BLOOD COUNT 33.3 K/mm3 (4.0-10.0)
[2024-03-05 09:10] LABS: ANISOCYTOSIS 1+; CORRECTED WBC 29.73 K/mm3; MACROCYTOSIS 1+; OVALOCYTE 1+
[2024-03-05] MEDS ORDERED: INSULIN (LEVEMIR) 100 UNITS/ML UNITS SQ ONE (10:23)
[2024-03-05] MEDS: VANCOMYCIN 500 MG in DEXTROSE 5%-WATER - 100 ML IVPB ONE (11:50)
[2024-03-05] MEDS: INSULIN (LEVEMIR) 100 UNITS/ML UNITS SQ ONE (16:28)
[2024-03-05 17:16] LABS: HEMATOCRIT 25.5 % (35.4-49); HEMOGLOBIN 8.4 GM/dL (11.7-16.9); MCH 29.1 pg (25.7-33.7); MCHC 32.9 g/dl (32.0-35.9); MEAN CELL VOLUME 88.5 fl (80-96); PLATELET COUNT 124 10^3/uL (134-434); RBC 2.88 M/mm3 (4.00-5.60); RDW 19.7 % (11.9-15.9)
[2024-03-05 17:20] LABS: WHITE BLOOD COUNT 29.1 K/mm3 (4.0-10.0)
[2024-03-05 17:55] LABS: ANISOCYTOSIS 2+; CORRECTED WBC 25.09 K/mm3; MACROCYTOSIS 1+; TOXIC GRANULATION 1+
[2024-03-05 17:59] LABS: PLATELET ESTIMATE SLT DECREASE
[2024-03-05] MEDS ORDERED: INSULIN (LEVEMIR) 100 UNITS/ML UNITS SQ SCH ×2 (22:00)
[2024-03-06 05:28] LABS: HEMATOCRIT 26.3 % (35.4-49); HEMOGLOBIN 8.8 GM/dL (11.7-16.9); MCH 29.9 pg (25.7-33.7); MCHC 33.5 g/dl (32.0-35.9); MEAN CELL VOLUME 89.1 fl (80-96); MEAN PLT VOLUME 9.5 fl (7.5-11.1); PLATELET COUNT 118 10^3/uL (134-434); RBC 2.96 M/mm3 (4.00-5.60); RDW 19.3 % (11.9-15.9)
[2024-03-06 05:30] LABS: WHITE BLOOD COUNT 25.8 K/mm3 (4.0-10.0)
[2024-03-06 05:34] LABS: INR 0.98 (0.83-1.09); PROTHROMBIN TIME (PATIENT) 11.3 SEC (9.7-13.0)
[2024-03-06 05:37] LABS: ACTIVATED PTT 31.1 SECONDS (25.2-36.5)
[2024-03-06 05:47] LABS: CHLORIDE 110 mmol/L (98-107); SODIUM 141 mmol/L (136-145)
[2024-03-06 05:49] LABS: CALCIUM 7.5 mg/dL (8.5-10.1)
[2024-03-06 05:50] LABS: ALBUMIN 1.4 g/dl (3.4-5.0); ANION GAP 7 mmol/L (4-13); CO2 24 mmol/L (21-32); GLUCOSE,RANDOM 194 mg/dL (74-106); MAGNESIUM 2.4 mg/dL (1.8-2.4)
[2024-03-06 05:53] LABS: CREATININE 2.5 mg/dL (0.55-1.3); PHOSPHOROUS 2.6 mg/dL (2.5-4.9); SGOT/AST 166 U/L (15-37); SGPT/ALT 159 U/L (13-61)
[2024-03-06 05:54] LABS: TOT PROT 4.1 g/dl (6.4-8.2)
[2024-03-06 05:57] LABS: ALK PHOS 84 U/L (45-117); BILIRUBIN,TOTAL 0.5 mg/dL (0.2-1)
[2024-03-06 06:04] LABS: BLOOD UREA NITROGEN 118.1 mg/dL (7-18)
[2024-03-06 07:25] LABS: ANISOCYTOSIS 1+; MACROCYTOSIS 1+
[2024-03-06] MEDS ORDERED: INSULIN (NOVOLOG) ASPART 100 UNITS/ML 10ML VIAL ONE (10:26)
[2024-03-06] MEDS: VANCOMYCIN/WATER FOR INJ (PEG) 1,000 MG/200 ML BAG IVPB ONE (12:47)
[2024-03-06] MEDS: KCL 20 MEQ PREMIX BAG 20 MEQ/100 ML INFUS.BAG IVPB SCH (12:48)
[2024-03-06] MEDS: POTASSIUM CHLORIDE 20 MEQ in AMINO ACIDS 4.25%/D5W 1,000 ML IV SCH (15:06)
[2024-03-06 21:14] VITALS: BMI 18.6
[2024-03-06] MEDS: INSULIN (LEVEMIR) 100 UNITS/ML UNITS SQ SCH (22:30)
[2024-03-07] MEDS: ACETAMINOPHEN 1000 MG/100 ML BAG IVPB STA (01:17)
[2024-03-07] MEDS: MIDAZOLAM IN 0.9 % SOD.CHLORID 100 MG/100 ML PLAST..BAG IVPB SCH (03:54)
[2024-03-07 05:27] LABS: INR 1.14 (0.83-1.09); POTASSIUM 3.9 mmol/L (3.5-5.1); PROTHROMBIN TIME (PATIENT) 12.8 SEC (9.7-13.0)
[2024-03-07 05:29] LABS: CALCIUM 7.5 mg/dL (8.5-10.1)
[2024-03-07 05:30] LABS: ACTIVATED PTT 33.2 SECONDS (25.2-36.5); ALBUMIN 1.4 g/dl (3.4-5.0); BLOOD UREA NITROGEN 94.1 mg/dL (7-18); MAGNESIUM 2.2 mg/dL (1.8-2.4)
[2024-03-07 05:33] LABS: CREATININE 1.9 mg/dL (0.55-1.3); PHOSPHOROUS 2.4 mg/dL (2.5-4.9)
[2024-03-07 05:34] LABS: BILIRUBIN,TOTAL 1.1 mg/dL (0.2-1)
[2024-03-07 05:35] LABS: TOT PROT 4.4 g/dl (6.4-8.2)
[2024-03-07] MEDS ORDERED: SODIUM PHOSPHATE - 0 MM in DEXTROSE 5%-WATER - 250 ML IVPB ONE (12:37)
[2024-03-07] MEDS: SODIUM PHOSPHATE - 10 MM in DEXTROSE 5%-WATER - 250 ML IVPB ONE (14:12)
[2024-03-08 06:40] LABS: HEMATOCRIT 28.1 % (35.4-49); HEMOGLOBIN 8.9 GM/dL (11.7-16.9); MCH 29.4 pg (25.7-33.7); MCHC 31.8 g/dl (32.0-35.9); MEAN CELL VOLUME 92.6 fl (80-96); MEAN PLT VOLUME 10.5 fl (7.5-11.1); PLATELET COUNT 151 10^3/uL (134-434); RBC 3.03 M/mm3 (4.00-5.60); RDW 20.1 % (11.9-15.9); WHITE BLOOD COUNT 28.3 K/mm3 (4.0-10.0)
[2024-03-08 06:48] LABS: INR 1.14 (0.83-1.09); PROTHROMBIN TIME (PATIENT) 13.1 SEC (9.7-13.0)
[2024-03-08 06:51] LABS: ACTIVATED PTT 33.8 SECONDS (25.2-36.5)
[2024-03-08 07:00] LABS: POTASSIUM 4.8 mmol/L (3.5-5.1)
[2024-03-08 07:08] LABS: ALBUMIN 1.3 g/dl (3.4-5.0); CALCIUM 7.3 mg/dL (8.5-10.1); MAGNESIUM 2.2 mg/dL (1.8-2.4)
[2024-03-08 07:09] LABS: BLOOD UREA NITROGEN 96.4 mg/dL (7-18)
[2024-03-08 07:12] LABS: CREATININE 1.9 mg/dL (0.55-1.3); PHOSPHOROUS 3.6 mg/dL (2.5-4.9)
[2024-03-08 07:13] LABS: BILIRUBIN,TOTAL 1.5 mg/dL (0.2-1); TOT PROT 4.4 g/dl (6.4-8.2)
[2024-03-08] MEDS: DEXTROSE 5%-LACTATED RINGERS 1,000 ML IV SCH (11:27)
[2024-03-08] MEDS: PANTOPRAZOLE SODIUM 40 MG VIAL IVPUSH SCH (11:27)
[2024-03-09 06:43] LABS: INR 1.2 (0.83-1.09); PROTHROMBIN TIME (PATIENT) 13.5 SEC (9.7-13.0)
[2024-03-09 06:44] LABS: ACTIVATED PTT 34.7 SECONDS (25.2-36.5)
[2024-03-09 06:45] LABS: HEMATOCRIT 26.7 % (35.4-49); HEMOGLOBIN 8.5 GM/dL (11.7-16.9); MCH 29.4 pg (25.7-33.7); MCHC 31.9 g/dl (32.0-35.9); MEAN CELL VOLUME 92.3 fl (80-96); MEAN PLT VOLUME 10.2 fl (7.5-11.1); PLATELET COUNT 172 10^3/uL (134-434); RBC 2.89 M/mm3 (4.00-5.60); RDW 20.1 % (11.9-15.9); WHITE BLOOD COUNT 28.3 K/mm3 (4.0-10.0)
[2024-03-09 06:56] LABS: POTASSIUM 4.9 mmol/L (3.5-5.1)
[2024-03-09 07:05] LABS: CALCIUM 8.1 mg/dL (8.5-10.1)
[2024-03-09 07:06] LABS: ALBUMIN 1.2 g/dl (3.4-5.0); BLOOD UREA NITROGEN 101.6 mg/dL (7-18); MAGNESIUM 2.2 mg/dL (1.8-2.4)
[2024-03-09 07:10] LABS: BILIRUBIN,TOTAL 1.4 mg/dL (0.2-1); TOT PROT 4.3 g/dl (6.4-8.2)
[2024-03-09 07:12] LABS: PHOSPHOROUS 3.9 mg/dL (2.5-4.9)
[2024-03-09] MEDS: INSULIN ASPART SLIDING SCALE (NOVOLOG) 1 VIAL SQ SCH ×2 (08:30→11:35)
[2024-03-09 09:53] LABS: ANISOCYTOSIS 2+; MACROCYTOSIS 1+
[2024-03-09 10:37] LABS: ARTERIAL BLD GAS O2 SATURATION 84.4 % (95-98); ARTERIAL BLOOD GAS BASE EXCESS -7.8 mmol/L (-2-2); ARTERIAL BLOOD GAS PO2 62.2 mmHg (80-100); ARTERIAL BLOOD GAS pH 7.156 (7.350-7.450)
[2024-03-09 10:41] LABS: ALLENS TEST POSITIVE; VENT MODE A/C
[2024-03-09 10:42] LABS: VENT RATE 12
[2024-03-09] MEDS: DEXMEDETOMIDINE PREMIX 400 MCG/100 ML BAG IVPB SCH (10:43)
[2024-03-09] MEDS: FENTANYL CITRATE/PF 50 MCG/ML VIAL IVPUSH ONE (12:11)
[2024-03-09] MEDS: LACTATED RINGERS SOLUTION 1000 ML INFUS.BAG IV ONE (13:55)
[2024-03-09] MEDS ORDERED: NOREPINEPHRINE BITARTRATE 4 MG/4 ML ML IV ONE (14:05)
[2024-03-09] MEDS ORDERED: NOREPINEPHRINE 0.9 % NACL 8 MG/250 ML BAG IVPB SCH (14:15)
[2024-03-09] MEDS: NOREPINEPHRINE BITARTRATE 4,000 MCG in DEXTROSE 5%-WATER - 496 ML IV SCH (14:20)
[2024-03-09 14:45] LABS: ARTERIAL BLD GAS O2 SATURATION 93.1 % (95-98); ARTERIAL BLOOD GAS PO2 68.7 mmHg (80-100); ARTERIAL BLOOD GAS pH 7.349 (7.350-7.450)
[2024-03-09 14:48] LABS: ALLENS TEST POSITIVE
[2024-03-09 14:49] LABS: VENT MODE A/C; VENT RATE 12
[2024-03-09] MEDS: ALBUTEROL SO4 2.5/IPRATROPIUM 0.5 INH SOL 3 ML VIAL.NEB. NEB SCH (15:24)
[2024-03-10] MEDS: ACETAMINOPHEN 650 MG/20.3 ML ORAL SOLUTION (CUPS) PO PRN
[2024-03-10] MEDS: SODIUM CHLORIDE FOR INHALATION 3 ML VIAL.NEB IH SCH (06:23)
[2024-03-10 06:55] LABS: HEMATOCRIT 27.8 % (35.4-49); HEMOGLOBIN 8.8 GM/dL (11.7-16.9); MCH 29.5 pg (25.7-33.7); MCHC 31.7 g/dl (32.0-35.9); MEAN CELL VOLUME 92.9 fl (80-96); MEAN PLT VOLUME 10.9 fl (7.5-11.1); PLATELET COUNT 199 10^3/uL (134-434); RBC 2.99 M/mm3 (4.00-5.60); RDW 19.8 % (11.9-15.9)
[2024-03-10 06:57] LABS: WHITE BLOOD COUNT 24.2 K/mm3 (4.0-10.0)
[2024-03-10 06:59] LABS: INR 1.29 (0.83-1.09); PROTHROMBIN TIME (PATIENT) 14.7 SEC (9.7-13.0)
[2024-03-10 07:01] LABS: ACTIVATED PTT 34.3 SECONDS (25.2-36.5)
[2024-03-10 07:06] LABS: POTASSIUM 4.9 mmol/L (3.5-5.1)
[2024-03-10 07:09] LABS: CALCIUM 7.9 mg/dL (8.5-10.1)
[2024-03-10 07:10] LABS: ALBUMIN 1.2 g/dl (3.4-5.0); BLOOD UREA NITROGEN 97.6 mg/dL (7-18); MAGNESIUM 2.2 mg/dL (1.8-2.4)
[2024-03-10 07:13] LABS: CREATININE 1.8 mg/dL (0.55-1.3)
[2024-03-10 07:14] LABS: TOT PROT 4.6 g/dl (6.4-8.2)
[2024-03-10 07:15] LABS: BILIRUBIN,TOTAL 2.5 mg/dL (0.2-1)
[2024-03-10 08:57] LABS: ANISOCYTOSIS 1+; CORRECTED WBC 20.34 K/mm3; MACROCYTOSIS 0
[2024-03-10] MEDS: LABETALOL HCL 5 MG/1 ML (100MG/20 ML VIAL) IVPUSH ONE (16:14)
[2024-03-10] MEDS ORDERED: FENTANYL CITRATE/PF 50 MCG/ML VIAL IVPUSH PRN (19:24)
[2024-03-10] MEDS: LABETALOL HCL 5 MG/1 ML (100MG/20 ML VIAL) IVPUSH PRN ×2 (19:37→23:30)
[2024-03-10] MEDS: FENTANYL CITRATE/PF 50 MCG/ML VIAL IVPUSH PRN (20:37)
[2024-03-10] MEDS: ACETAMINOPHEN 1000 MG/100 ML BAG IVPB PRN (21:38)
[2024-03-11] MEDS: FENTANYL CITRATE/PF 50 MCG/ML VIAL IVPUSH PRN (00:10)
[2024-03-11 07:06] LABS: HEMATOCRIT 26.7 % (35.4-49); HEMOGLOBIN 8.6 GM/dL (11.7-16.9); MCH 29.5 pg (25.7-33.7); MCHC 32.4 g/dl (32.0-35.9); MEAN CELL VOLUME 91.1 fl (80-96); MEAN PLT VOLUME 9.8 fl (7.5-11.1); PLATELET COUNT 223 10^3/uL (134-434); RBC 2.93 M/mm3 (4.00-5.60); RDW 18.9 % (11.9-15.9)
[2024-03-11 07:18] LABS: POTASSIUM 5.3 mmol/L (3.5-5.1)
[2024-03-11 07:19] LABS: WHITE BLOOD COUNT 23.4 K/mm3 (4.0-10.0)
[2024-03-11 07:21] LABS: ALBUMIN 1.2 g/dl (3.4-5.0); BLOOD UREA NITROGEN 100.7 mg/dL (7-18)
[2024-03-11 07:23] LABS: MAGNESIUM 2.3 mg/dL (1.8-2.4)
[2024-03-11 07:24] LABS: CREATININE 1.7 mg/dL (0.55-1.3)
[2024-03-11 07:25] LABS: BILIRUBIN,TOTAL 2.7 mg/dL (0.2-1); TOT PROT 4.8 g/dl (6.4-8.2)
[2024-03-11] MEDS: SODIUM ZIRCONIUM CYCLOSILICATE (LOKELMA) 5 GM PACKET PO SCH (09:20)
[2024-03-11 10:49] LABS: ANISOCYTOSIS 1+; CORRECTED WBC 18.72 K/mm3; MACROCYTOSIS 1+
[2024-03-11] MEDS ORDERED: MIDAZOLAM HCL 2 MG/2 ML SINGLE DOSE VIAL ONE (11:28)
[2024-03-11] MEDS: MIDAZOLAM HCL 2 MG/2 ML SINGLE DOSE VIAL IVPUSH SCH (11:30)
[2024-03-11] MEDS ORDERED: MIDAZOLAM HCL 2 MG/2 ML SINGLE DOSE VIAL IVPUSH SCH (11:31)
[2024-03-11 11:53] LABS: ARTERIAL BLD GAS O2 SATURATION 99.8 % (95-98); ARTERIAL BLOOD GAS BASE EXCESS -1.3 mmol/L (-2-2); ARTERIAL BLOOD GAS PO2 374.5 mmHg (80-100); ARTERIAL BLOOD GAS pH 7.437 (7.350-7.450)
[2024-03-11 11:54] LABS: ALLENS TEST POSITIVE
[2024-03-11 11:55] LABS: VENT MODE V-AC; VENT RATE 12
[2024-03-11] MEDS: FUROSEMIDE 40 MG/4 ML INJECTABLE VIAL IVPUSH ONE (12:50)
[2024-03-11] MEDS: LABETALOL HCL 100 MG TABLET (FP) PO SCH (15:07)
[2024-03-11] MEDS: SCOPOLAMINE HYDROBROMIDE 1 PATCH PATCH.TD72 TD SCH (15:25)
[2024-03-11] MEDS: morphine SULFATE 4 MG/ML VIAL IVPUSH ONE (15:28)
[2024-03-11] MEDS: LORazepam 2 MG/ML SDV VIAL IVPUSH ONE (15:28)
[2024-03-11] MEDS: MORPHINE 100 MG/100 ML MG IVPB SCH (15:36)
[2024-03-11] MEDS: MORPHINE SULFATE/0.9% NACL/PF 100 MG/100 ML BAG IVPB SCH (19:24)
[2024-03-12] MEDS: MORPHINE 100 MG/100 ML MG IVPB SCH (15:00)
[2024-03-13] MEDS: LORazepam 2 MG/ML SDV VIAL IVPUSH PRN (17:44)
[2024-03-13 18:05] VITALS: BP 91/35; PULSE 91; RESP 20; TEMP 99.4
[2024-03-14] MEDS ORDERED: SCOPOLAMINE HYDROBROMIDE 1 PATCH PATCH.TD72 TD SCH (15:00)
== END 2024-03-14 00:10 | disposition expired | DRG 853 ==
LOC: JER 14:56 → JERBED 02-28 03:43 → JICU 02-28 09:58 → J8W 03-12 16:32
PROVIDERS: ADMIT Internal Medicine; ATTEND Internal Medicine
PROC: 05HM33Z Insertion of Infusion Device into Right Internal Jugular Vein, Percutaneous Approach (ICD-10-PCS; principal; 2024-02-28)
PROC: 04V43DZ Restriction of Splenic Artery with Intraluminal Device, Percutaneous Approach (ICD-10-PCS; 2024-02-28)
PROC: B543ZZA Ultrasonography of Right Jugular Veins, Guidance (ICD-10-PCS; 2024-02-28)
PROC: 30233N1 Transfusion of Nonautologous Red Blood Cells into Peripheral Vein, Percutaneous Approach (ICD-10-PCS; 2024-02-28)
PROC: 05HN33Z Insertion of Infusion Device into Left Internal Jugular Vein, Percutaneous Approach (ICD-10-PCS; 2024-03-02)
PROC: B544ZZA Ultrasonography of Left Jugular Veins, Guidance (ICD-10-PCS; 2024-03-02)
PROC: 0BH18EZ Insertion of Endotracheal Airway into Trachea, Via Natural or Artificial Opening Endoscopic (ICD-10-PCS; 2024-03-02)
PROC: 5A1955Z Respiratory Ventilation, Greater than 96 Consecutive Hours (ICD-10-PCS; 2024-03-02)
DX: A41.89 Other specified sepsis (principal); E11.10 Type 2 diabetes mellitus with ketoacidosis without coma; K68.3 Retroperitoneal hematoma; R65.21 Severe sepsis with septic shock; J69.0 Pneumonitis due to inhalation of food and vomit; G93.41 Metabolic encephalopathy; J96.01 Acute respiratory failure with hypoxia; E87.1 Hypo-osmolality and hyponatremia; N17.9 Acute kidney failure, unspecified; D62 Acute posthemorrhagic anemia; K92.2 Gastrointestinal hemorrhage, unspecified; D68.9 Coagulation defect, unspecified; E87.20 Acidosis, unspecified; D72.829 Elevated white blood cell count, unspecified; N40.0 Benign prostatic hyperplasia without lower urinary tract symptoms; I12.9 Hypertensive chronic kidney disease with stage 1 through stage 4 chronic kidney disease, or unspecified chronic kidney disease; E11.22 Type 2 diabetes mellitus with diabetic chronic kidney disease; D69.6 Thrombocytopenia, unspecified; N18.9 Chronic kidney disease, unspecified; I35.0 Nonrheumatic aortic (valve) stenosis; I05.0 Rheumatic mitral stenosis; K86.9 Disease of pancreas, unspecified; B96.20 Unspecified Escherichia coli [E. coli] as the cause of diseases classified elsewhere; Y93.9 Activity, unspecified; Y92.9 Unspecified place or not applicable; Y99.9 Unspecified external cause status; E87.5 Hyperkalemia; I72.8 Aneurysm of other specified arteries; Z96.641 Presence of right artificial hip joint; Z90.49 Acquired absence of other specified parts of digestive tract
CPT/HCPCS: 0241U-QW; 31500; 36415; 36430; 36600; 37242; 71045-TC-FY; 74018-TC-FY; 74175-TC; 74176-TC; 76775-TC; 80048; 80053; 81003; 82010; 82150; 82272; 82436; 82803; 82962; 83036; 83605; 83615; 83690; 83735; 83935; 84100; 84133; 84300; 84484; 85025; 85027; 85384; 85610; 85730; 86140; 86850; 86900; 86901; 86922; 87040; 87070; 87077; 87086; 87186; 87205; 88300-TC; 93005; 93010; 93306-TC; 94002; 94640; 99285-25; G0480; J0131; J3490; J7168; P9058